=== PATIENT | female | born 1995 | race Two or more races ===

== ENCOUNTER 2020-10-15 13:30 | Outpatient (REF) | payer BC, SELFPAY | END 2020-10-15 13:31 | disposition home or self-care (01) | LOC: HO.LAB 13:30 | PROVIDERS: Visit Provider Internal Medicine | DX: Z20.822 Contact with and (suspected) exposure to COVID-19 (principal) | CPT/HCPCS: 36415; C9803; U0003 ==

== ENCOUNTER 2021-01-20 11:02 | Outpatient (REF) | payer BC, SELFPAY | END 2021-01-20 11:03 | disposition home or self-care (01) | LOC: HO.LAB 11:02 | PROVIDERS: Visit Provider Internal Medicine | DX: Z20.822 Contact with and (suspected) exposure to COVID-19 (principal) | CPT/HCPCS: C9803; U0003; U0005 ==